=== PATIENT | male | born 1985 | race Two or more races ===

== ENCOUNTER 2022-06-03 21:52 | Emergency (ER) | payer OTHER ==
[~2022-06-03] VITALS: Ht 167.6 cm; Wt 86.4 kg
[2022-06-03] MEDS ORDERED: MORPHINE SULFATE 4 MG/ML SYR/VIAL IM ONE (23:00)
[2022-06-03 23:50] VITALS: BP 111/64
== END 2022-06-03 23:56 | disposition home or self-care (01) ==
LOC: EDBD 22:01 → ER 22:01
DX: S60.222A Contusion of left hand, initial encounter (principal); I48.91 Unspecified atrial fibrillation; X58.XXXA Exposure to other specified factors, initial encounter; Y93.89 Activity, other specified; Y92.89 Other specified places as the place of occurrence of the external cause; Y99.8 Other external cause status
CPT/HCPCS: 93005; 96372; 99285; J2270